=== PATIENT | male | born 1940 | race Caucasian/White ===

== ENCOUNTER 2024-05-06 13:34 | Inpatient (IN) | payer MEDICARE ==
[2024-05-06 14:57] LABS: #Basophils Less than 0.03 10x3/uL (0.0-0.2); %Basophils 0.2 % (0.0-1.0); %Eosinophils 1.5 % (0.0-10.0); %Monocytes 11.2 % (0.0-10.0); %Neutrophils 77.7 % (42.0-75.0); Hematocrit 38.7 % (42.0-52.0); Hemoglobin 13.1 g/dL (14.0-18.0); Mean Corpuscular HGB CONC 33.9 g/dL (32.0-36.0); Mean Corpuscular Hemoglobin 32.1 pg (27.0-31.0); Mean Corpuscular Volume 94.9 fL (78.0-98.0); Platelet Count 181 10x3/uL (130-400); RBC Distribution Width 12.9 % (11.5-14.5); Red Blood Cell (RBC) Count 4.08 mill/uL (4.70-6.10)
[2024-05-06 15:13] LABS: ALT (SGPT) 5 U/L (8-55); AST (SGOT) 13 U/L (5-34); Alkaline Phosphatase 61 U/L (40-110); Anion Gap 14 mmol/L (10-20); BUN (Urea Nitrogen) 7 mg/dL (8.4-25.7); Bilirubin, Total 0.6 mg/dL (0.2-1.2); Calc. Creatinine Clearance 0 mL/min (70-130); Calcium 8.5 mg/dL (7.8-10.44); Carbon Dioxide 25 mmol/L (23-31); Chloride 99 mmol/L (98-107); Estimated GFR 90; Globulin 3.6 g/dL (2.4-3.5); Glucose 100 mg/dL (83-110); Potassium 3.6 mmol/L (3.5-5.1); Protein, Total 6.6 g/dL (5.8-8.1); Sodium 134 mmol/L (136-145)
[2024-05-06] MEDS ORDERED: Ketorolac Tromethamine 30 MG (1 mL) VIAL ONE (16:35)
[2024-05-06] MEDS ORDERED: traMADol HCl 50 MG TAB ONE (16:36)
[2024-05-06] MEDS ORDERED: EPINEPHrine 1 MG/ML VIAL ONE (18:54)
[2024-05-06] MEDS ORDERED: Bacitracin Zinc Ointment 30 gm TUBE ONE (18:54)
[2024-05-06] MEDS ORDERED: Lidocaine 1% (PF) 30 ML VIAL ONE (18:54)
[2024-05-06] MEDS ORDERED: Ketamine In 0.9 % NaCl 50 MG/5 ML SYRINGE ONE (19:06)
[2024-05-06] MEDS ORDERED: Midazolam HCl 2 mg/2 ml Vial ONE (19:07)
[2024-05-06] MEDS ORDERED: PROPOFOL 20 ML ONE (19:07)
[2024-05-06] MEDS ORDERED: SUGAMMADEX SODIUM 200 MG/2 ML VIAL ONE (20:13)
[2024-05-06] MEDS ORDERED: Tranexamic Acid 1,000 MG/10 ML VIAL ONE (20:15)
[2024-05-06] MEDS ORDERED: Bisacodyl 10 MG SUPP PR PRN (21:11)
[2024-05-06] MEDS ORDERED: Bisacodyl 5 MG TAB PO PRN (21:11)
[2024-05-06] MEDS ORDERED: Ondansetron PF 4 MG/2 ML Vial IVP PRN (21:11)
[2024-05-06] MEDS ORDERED: Ondansetron ODT 4 MG TAB PO PRN (21:11)
[2024-05-06] MEDS ORDERED: HYDROcodone/Acetaminophen 5/325 mg Tablet PO PRN (21:14)
[2024-05-06] MEDS ORDERED: fentaNYL 50 mcg/mL 1 mL Vial ONE (21:23)
[2024-05-06] MEDS: HYDROcodone/Acetaminophen 10/325 mg Tablet PO PRN (23:31)
[2024-05-07] MEDS: Piperacillin/Tazobactam 3.375 GM in Sodium Chloride 0.9% 100 ML IVPB SCH ×2 (01:59→07:19)
[2024-05-07 03:57] VITALS: BMI 24.6
[2024-05-07] MEDS: Vancomycin (BATCH) 2 GM in Premix 1 BAG IVPB SCH (05:12)
[2024-05-07] MEDS ORDERED: Vancomycin 1 GM in Sodium Chloride 0.9% 250 ML 250 ML IVPB SCH (09:00)
[2024-05-07 10:05] LABS: #Basophils Less than 0.03 10x3/uL (0.0-0.2); %Basophils 0.1 % (0.0-1.0); %Eosinophils 1.9 % (0.0-10.0); %Lymphocytes 8.6 % (21.0-51.0); %Monocytes 9.4 % (0.0-10.0); %Neutrophils 79.4 % (42.0-75.0); Hemoglobin 11.4 g/dL (14.0-18.0); Mean Corpuscular HGB CONC 33.5 g/dL (32.0-36.0); Mean Corpuscular Hemoglobin 31.9 pg (27.0-31.0); Mean Corpuscular Volume 95.2 fL (78.0-98.0); Mean Platelet Volume 9.1 fL (7.4-10.4); Platelet Count 160 10x3/uL (130-400); RBC Distribution Width 13.2 % (11.5-14.5); Red Blood Cell (RBC) Count 3.57 mill/uL (4.70-6.10)
[2024-05-07 10:33] LABS: Anion Gap 11 mmol/L (10-20); BUN (Urea Nitrogen) 9 mg/dL (8.4-25.7); Calc. Creatinine Clearance 85 mL/min (70-130); Calcium 7.9 mg/dL (7.8-10.44); Carbon Dioxide 27 mmol/L (23-31); Chloride 101 mmol/L (98-107); Estimated GFR 89; Glucose 124 mg/dL (83-110); Potassium 3.9 mmol/L (3.5-5.1); Sodium 135 mmol/L (136-145)
[2024-05-07] MEDS: Vancomycin HCl 750 MG in Sodium Chloride 0.9% 250 ML 250 ML IVPB SCH (13:20)
[2024-05-07] MEDS: Senokot S 8.6-50 MG TAB PO PRN (20:51)
[2024-05-08 06:33] LABS: #Basophils Less than 0.03 10x3/uL (0.0-0.2); %Basophils 0.3 % (0.0-1.0); %Eosinophils 4.3 % (0.0-10.0); %Lymphocytes 14.2 % (21.0-51.0); %Monocytes 12.4 % (0.0-10.0); %Neutrophils 68.5 % (42.0-75.0); Hematocrit 32.4 % (42.0-52.0); Hemoglobin 10.9 g/dL (14.0-18.0); Mean Corpuscular HGB CONC 33.6 g/dL (32.0-36.0); Mean Corpuscular Hemoglobin 31.8 pg (27.0-31.0); Mean Corpuscular Volume 94.5 fL (78.0-98.0); Mean Platelet Volume 9.2 fL (7.4-10.4); Platelet Count 166 10x3/uL (130-400); RBC Distribution Width 13.2 % (11.5-14.5); Red Blood Cell (RBC) Count 3.43 mill/uL (4.70-6.10)
[2024-05-08] MEDS: Ibuprofen 200 MG TAB PO PRN (06:36)
[2024-05-08 06:56] LABS: Vancomycin, Random 39.4 ug/mL (See Comment)
[2024-05-08 07:04] LABS: ALT (SGPT) 7 U/L (8-55); AST (SGOT) 15 U/L (5-34); Albumin 2.2 g/dL (3.4-4.8); Alkaline Phosphatase 49 U/L (40-110); Anion Gap 10 mmol/L (10-20); BUN (Urea Nitrogen) 10 mg/dL (8.4-25.7); Bilirubin, Total 0.3 mg/dL (0.2-1.2); Calc. Creatinine Clearance 93 mL/min (70-130); Carbon Dioxide 25 mmol/L (23-31); Chloride 104 mmol/L (98-107); Estimated GFR 92; Globulin 3.1 g/dL (2.4-3.5); Glucose 91 mg/dL (83-110); Potassium 3.5 mmol/L (3.5-5.1); Protein, Total 5.3 g/dL (5.8-8.1); Sodium 135 mmol/L (136-145)
[2024-05-08] MEDS: FLU (Fluad Triv) TS24-25 (65UP)/MF59C/PF 45 MCG/0.5 ML Syringe IM ONE (07:46)
[2024-05-08 08:03] VITALS: BP 152/83; TEMP 98.2
[2024-05-08] MEDS: Bacitracin 1 PK TOP SCH (08:54)
[2024-05-09] MEDS ORDERED: Vancomycin (BATCH) 1.5 GM in Premix 1 BAG IVPB SCH (06:00)
== END 2024-05-08 12:10 | disposition home or self-care (01) | DRG 857 ==
LOC: ERS 13:34 → SDC/OP 19:23 → SURG A 22:42
PROVIDERS: ADMIT Otolaryngology; ATTEND Otolaryngology
PROC: 0W960ZZ Drainage of Neck, Open Approach (ICD-10-PCS; principal; 2024-05-06)
PROC: 3E033XZ Introduction of Vasopressor into Peripheral Vein, Percutaneous Approach (ICD-10-PCS; 2024-05-06)
DX: T81.49XA Infection following a procedure, other surgical site, initial encounter (principal); E89.820 Postprocedural hematoma of an endocrine system organ or structure following an endocrine system procedure; K21.9 Gastro-esophageal reflux disease without esophagitis; Z90.49 Acquired absence of other specified parts of digestive tract; Z90.89 Acquired absence of other organs; Z98.890 Other specified postprocedural states; Z79.899 Other long term (current) drug therapy; F32.A Depression, unspecified
CPT/HCPCS: 36415; 70492; 80048; 80053; 80202; 83605; 85025; 87040; 87070; 87077; 87186; 87205; 96374; J0171; J1885; J2250; J2543; J2704; J3010; J3370; J3490; J7050